=== PATIENT | male | born 1935 | race Caucasian/White ===

== ENCOUNTER 2016-07-25 07:27 | Day surgery (SDC) | payer OTHER ==
[~2016-07-25] VITALS: Ht 165.1 cm; Wt 82.5 kg
[~2016-07-25 07:27] MED LIST: ALPH400C2 PO; AMLO10TA2 PO; ASPI1TAB69 PO; ATEN100T PO; ATOR1TAB18 PO; B COTAB6 PO; CINN500C PO; CYAN1TAB24 PO; FERR1TAB58 PO; FLAX1CAP2 PO; GARL10CA2 PO; GEMF600T PO; GLIP10TA6 PO; HEPARIN SODIUM - IV 10,000 UNITS/10 ML VIAL ONE; HYDR25TA5 PO; LISI40TA PO; LORA10TA PO; LOSA100T PO; MAGN500T4 PO; MULT1TAB85 PO; PROTAMINE SULFATE 50 MG/5 ML VIAL ONE; TRAM50TA PO; VITA2000 PO; VITA20003 PO; VITA500T PO; [UNRECOGNIZED DRUG - CODE] PO
[2016-07-25 08:23] VITALS: BP 170/71; PULSE 73; RESP 20; TEMP 98.2; O2SAT 97
[2016-07-25] MEDS ORDERED: SODIUM CHLORID 0.9% 500 ML IV SCH (08:30)
[2016-07-25] MEDS ORDERED: INSULIN HUMAN REGULAR 1,000 UNITS/10 ML VIAL SQ PRN (08:30)
[2016-07-25] MEDS ORDERED: LACTATED RINGER'S 1000 ML IV SCH (08:30)
[2016-07-25] MEDS ORDERED: METOPROLOL TARTRATE 25 MG TAB PO PRN (08:30)
[2016-07-25] MEDS ORDERED: ceFAZolin 1,000 MG/NS 100 ML IV SCH ×2 (08:30)
[2016-07-25 08:38] LABS: AUTOMATED NEUTROPHIL # 4.5 TH/MM3 (1.8-7.7); BASOPHIL % 0.2 % (0.0-2.0); EOSINOPHIL # 0.2 TH/MM3 (0-0.4); EOSINOPHIL % 2.6 % (0.0-4.0); HEMATOCRIT 32.7 % (39.0-51.0); HEMO FLAGS DIFF FINAL; LYMPH % 15.5 % (9.0-44.0); MEAN CORPUSCULAR HEMOGLOBIN 31.6 PG (27.0-34.0); MEAN CORPUSCULAR HGB CONC 34.7 % (32.0-36.0); MONO % 11.9 % (0.0-8.0); NEUT % 69.8 % (16.0-70.0); PLATELET COUNT 125 TH/MM3 (150-450); RED CELL DISTRIBUTION WIDTH 14.9 % (11.6-17.2); WHITE BLOOD COUNT 6.4 TH/MM3 (4.0-11.0)
[2016-07-25 08:44] LABS: APTT (PATIENT) 24.5 SEC (24.3-30.1); INTERNATIONAL NORMALIZED RATIO 1.1 RATIO; PROTHROMBIN TIME - PATIENT 11.9 SEC (9.8-11.6)
[2016-07-25 08:53] LABS: BICARBONATE 24.7 MEQ/L (21.0-32.0); POTASSIUM 3.7 MEQ/L (3.5-5.1)
[2016-07-25] MEDS ORDERED: FAMOTIDINE 20 MG/2 ML VIAL ONE (09:51)
[2016-07-25] MEDS ORDERED: MIDAZOLAM HCL 2 MG/2 ML VIAL ONE (10:01)
[2016-07-25] MEDS ORDERED: DEXAMETHASONE SOD PHOS 4 MG/ML VIAL ONE (10:01)
[2016-07-25] MEDS: HEPARIN SODIUM - SQ 10,000 UNITS/ML VIAL ONE ×2 (10:44→10:56)
[2016-07-25] MEDS ORDERED: BUPIVACAINE/EPINEPHRINE 0.5% PF 30 ML VIAL INFIL ONE ×2 (10:44→10:56)
[2016-07-25] MEDS ORDERED: IOHEXOL 300 MG/ML 100 ML BTL (for Rad CT) OTHER ONE (11:12)
[2016-07-25] MEDS ORDERED: HEPARIN SODIUM - IV 10,000 UNITS/10 ML VIAL IV ONE (12:17)
[2016-07-25] MEDS ORDERED: PHENYLEPH/NS 1000 MCG/10 ML SYR IV ONE (13:44)
[2016-07-25] MEDS ORDERED: ePHEDrine/NS 50 MG/5 ML SYR IV ONE (13:44)
[2016-07-25] MEDS ORDERED: LACTATED RINGER'S 1000 ML INJ 1,000 ML IV ONE (13:44)
[2016-07-25] MEDS ORDERED: PROPOFOL 200 MG/20 ML AMP IV ONE (13:44)
[2016-07-25] MEDS ORDERED: NITROGLYCERIN 1000 MCG/5 ML VIAL OTHER ONE (13:48)
[2016-07-25] MEDS ORDERED: DO NOT ADM ANY ANTICOAGULANT DRUGS XX PRN (14:30)
[2016-07-25] MEDS ORDERED: SODIUM CHLOR 0.9% 250 ML IV PRN (14:45)
[2016-07-25] MEDS ORDERED: HOLD GLUCOPHAGE, GLUCOPHAGE XR, AND AVANDAMET XX PRN (14:45)
[2016-07-25] MEDS ORDERED: SODIUM NITROPRUSSIDE 50 MG/250 ML D5W IV SCH ×2 (14:45)
[2016-07-25] MEDS ORDERED: ONDANSETRON HCL 4 MG/2 ML VIAL IV PRN (14:45)
[2016-07-25] MEDS ORDERED: oxyCODONE/ACETAMINOPHEN 5 MG/325 MG TAB PO PRN (14:45)
[2016-07-25] MEDS ORDERED: POTASSIUM CHLORIDE 20 MEQ CONTROLLED RELEASE TAB PO PRN (14:45)
[2016-07-25] MEDS ORDERED: ATROPINE SULFATE 1 MG/ML VIAL IV PUSH PRN (14:45)
[2016-07-25] MEDS ORDERED: SODIUM CHLORIDE 5 ML FLUSH PRN IVF (14:45)
[2016-07-25] MEDS ORDERED: cloNIDine HCL 0.1 MG TAB PO PRN (14:45)
[2016-07-25] MEDS ORDERED: SODIUM CHLORIDE 0.9% 1000 ML @ 125 ML/HR IV SCH (14:45)
[2016-07-25] MEDS ORDERED: LABETALOL HCL 100 MG/20 ML VIAL IVP PRN (14:45)
[2016-07-25] MEDS ORDERED: ENALAPRILAT 1.25 MG/ML VIAL IV PRN (14:45)
[2016-07-25] MEDS ORDERED: MORPHINE SULFATE 4 MG/ML INJ IV PUSH PRN (14:45)
[2016-07-25] MEDS ORDERED: METOCLOPRAMIDE HCL 10 MG/2 ML VIAL IVS PRN (14:45)
[2016-07-25] MEDS ORDERED: CLOPIDOGREL 300 MG TAB PO ONE (16:30)
--- NOTE | 2016-07-25 16:57 | EKG ---
Date Performed: 07/25/2016 Time Performed: 08:28:16 PTAGE: 81 years EKG: Sinus rhythm WITH FIRST DEGREE AV BLOCK Baseline artifact Incomplete right bundle branch block. Nonspecific ST-T wave chenges. When compared to previou tracing, the patie now has an Incomplete right bundle brach bl ock. ABNORMAL ECG PREVIOUS TRACING : 07/17/2009 05.22 DOCTOR: Krystle Nichols Interpretating Date/Time 07/25/2016 16:54:37
[2016-07-25] MEDS ORDERED: traMADol HCL 50 MG TAB PO SCH (17:00)
[2016-07-25] MEDS ORDERED: PLAV75TA29 PO (18:14)
[2016-07-25 18:30] VITALS: BP 150/78; PULSE 80; RESP 16; TEMP 97.6; O2SAT 95
[2016-07-25] MEDS ORDERED: SODIUM CHLORIDE 5 ML FLUSH BID IVF SCH (21:00)
[2016-07-25] MEDS ORDERED: ATORVASTATIN 80 MG TAB PO SCH (21:00)
[2016-07-26] MEDS ORDERED: glipiZIDE 10 MG TAB PO SCH (07:00)
[2016-07-26] MEDS ORDERED: GEMFIBROZIL 600 MG TAB PO SCH (07:00)
[2016-07-26] MEDS ORDERED: LISINOPRIL 20 MG TAB PO SCH (09:00)
[2016-07-26] MEDS ORDERED: ASPIRIN EC 81 MG TABEC PO SCH (09:00)
[2016-07-26] MEDS ORDERED: LOSARTAN 50 MG TAB PO SCH (09:00)
[2016-07-26] MEDS ORDERED: ATENOLOL 100 MG TAB PO SCH (09:00)
[2016-07-26] MEDS ORDERED: HYDROCHLOROTHIAZIDE 25 MG TAB PO SCH (09:00)
[2016-07-26] MEDS ORDERED: CLOPIDOGREL 75 MG TAB PO SCH (09:00)
--- NOTE | 2016-07-30 14:46 | MP ---
cc: GEORGIA LOVETT M.D., JAMES T. M.D. DATE OF SURGERY: 07/25/2016 REOPERATIVE DIAGNOSIS Progressively disabling bilateral lower extremity ischemia, potentially limb threatening on the left side. POSTOPERATIVE DIAGNOSIS Progressively disabling bilateral lower extremity ischemia, potentially limb threatening on the left side. PROCEDURE 1. Left common iliac percutaneous balloon angioplasty and stent placement. 2. Right popliteal and tibioperoneal trunk orbital atherectomy and percutaneous balloon angioplasty. 3. CO2 aortofemoral arteriogram. SURGEON Hermann Millard FERN GATHERER DIONICIO Simmons ANESTHESIA Local MAC. DESCRIPTION OF OPERATIVE PROCEDURE With the patient in the supine position IV sedation was induced, the lower abdomen, both groins and thighs prepped with Betadine and draped in a sterile fashion. One gram of Ancef was administered intravenously and following a protocol timeout, the skin and subcutaneous tissue overlying and surrounding the proposed left common femoral access site preemptively infiltrated with 0.5% Marcaine with epinephrine. Utilizing ultrasound guidance, an 18-gauge needle was inserted into the left mid common femoral lumen and a J-wire advanced under fluoroscopic guidance into the left iliac artery. A 5-Mozambican hemostatic sheath was deployed over the J-wire. Retrograde injection of carbon dioxide to the sheath side-arm in conjunction with digital C-arm fluoroscopic imaging confirmed a near complete occlusion of the left common iliac origin. The previously placed left common iliac stent appeared widely patent. The left external iliac was diminished in caliber, probably due to decreased perfusion pressures relating to the common iliac high-grade stenosis. An Advantage guidewire, Omni catheter combination was navigated into the subrenal aorta. Again with CO2 as contrast, an aortobiiliac angiogram was accomplished. A small aneurysm was reconfirmed within the distal aorta. Again, near complete occlusion of the left common iliac origin was redefined. Beyond the near complete occlusion, post stenotic dilatation of the proximal segment of common iliac was apparent and the existing left common iliac stent was widely patent with diminished but patent caliber of the external iliac. On the right side the two separate iliac stents within the common iliac remained widely patent. Beyond this, the common and external iliac arteries were relatively non-diseased. Both internal iliac arteries were completely occluded. Finally, a runoff study revealed on the left side high-grade, diffuse calcified atherosclerotic plaque within the left common femoral bifurcation producing near-complete occlusion of the proximal SFA and profunda femoral arteries. Beyond the origin, the SFA was relatively non-diseased. However, at the adductor canal and beyond, the popliteal artery was severely calcified and occluded proximal to the knee joint level. Below the knee, the popliteal and trifurcation faintly visualized. On the right side, the SFA was normal in appearance down to the adductor level. The popliteal artery was diffusely diseased and occluded immediately proximal to the knee joint level. Geniculates collateralized the patent, below-knee popliteal. The tibioperoneal trunk exhibited eccentric calcified plaque producing diffuse 70-80% stenosis. Beyond, the anterior posterior tibial and peroneal arteries were normal in appearance. The patient was systemically heparinized with 5000 units. During the procedure, an additional 2000 units were administered intravenously to maintain ACT above 250. The 5-Mozambican sheath was exchanged over the Advantage guidewire for a 6-Mozambican Brite Tip sheath which was navigated into the mid left common iliac. Utilizing roadmapping guidance, the common iliac ostial stenosis was predilated with a 6 x 40 mm balloon followed by deployment of a 7 x 30 mm balloon expandable stent. Completion angiogram revealed wide patency with no residual stenosis or technical defects. The Advantage guidewire Omni catheter combination was re-advanced into the subrenal aorta, the guidewire navigated into the right iliac and distally into the proximal right superficial femoral artery. The Omni catheter was exchanged for a Quick-Cross catheter. This combination was navigated down to the popliteal occlusion. The Advantage guidewire could not be navigated through the densely calcified popliteal occlusion. A [place] 12 wire in conjunction with a 0.018 Quick-Cross catheter combination easily negotiated across the popliteal occlusion in the high-grade tibial peroneal stenosis. The [place] wire was then exchanged for a Viper wire which was negotiated into the distal peroneal. Orbital atherectomy of the popliteal and tibioperoneal disease was completed with a 1.5 CSI crown spun at 60, 90 and 120,000 RPMs. This was followed by balloon dilatation of the atherectomized segment of artery with a 4 x 140 mm balloon followed by a 5 x 150 mm drug-coated balloon inflated to nominal 8 atmospheres, 3 minute inflation. Completion angiogram revealed wide patency of the popliteal and tibioperoneal with no residual recoil stenosis or technical defects. At this point, heparin was reversed with 20 mg of protamine. ACT measured 153. The left femoral sheath was removed and hemostasis achieved with compression. The patient returned to the recovery room in stable condition having tolerated procedure well. At the completion of the procedure the right posterior tibial pulse was easily palpable and Doppler flow within the left dorsalis pedis was robust and much improved following left iliac inflow stenosis treatment. Hermann Millard MD JTS/BT /4:35 PM /2:33 PM
[2016-10-04] MEDS ORDERED: TAMS0.4C4 PO (09:55)
[2016-10-04] MEDS ORDERED: FISH1000 PO (09:55)
[2016-10-04] MEDS ORDERED: OMEP20TA PO (09:55)
== END 2016-07-25 19:10 | disposition home or self-care (01) ==
LOC: HCVO 07:27
PROVIDERS: ATTEND Surgery Vascular Surgery
DX: I70.213 Atherosclerosis of native arteries of extremities with intermittent claudication, bilateral legs (principal); I10 Essential (primary) hypertension; E11.9 Type 2 diabetes mellitus without complications; E78.5 Hyperlipidemia, unspecified; I25.10 Atherosclerotic heart disease of native coronary artery without angina pectoris; Z98.61 Coronary angioplasty status; Z79.01 Long term (current) use of anticoagulants
CPT/HCPCS: 01270; 37221; 37227; 37229; 75716; 76937; 80048; 85025; 85610; 85730; 86850; 86900; 86901; 93005; C1725; C1769; C1876; C1887; C2623; J0690; J1100; J1644; J2250; J2370; J2720; J7120; Q9967

== ENCOUNTER → 2016-10-05 | Day surgery (SDC) | payer OTHER ==
[~2016-10-05] MED LIST changes: +BUPIVACAINE/EPINEPHRINE 0.5% PF 30 ML VIAL ONE; +CHLORHEXIDINE GLUCONATE 2 % 1 PACK (2 CLOTHS) TOPICAL PRN; +DO NOT ADM ANY ANTICOAGULANT DRUGS PRN; +FAMOTIDINE 20 MG/2 ML VIAL ONE; +FISH1000 PO; +HEPARIN SODIUM - SQ 10,000 UNITS/ML VIAL ONE; +INSULIN HUMAN REGULAR 1,000 UNITS/10 ML VIAL SQ PRN; +IOHEXOL 300 MG/ML 50 ML BTL (for RAD DIAG) IV ONE; +IOHEXOL 300 MG/ML 50 ML BTL (for RAD DIAG) OTHER ONE; +LACTATED RINGER'S 1000 ML IV PRN; +METOPROLOL TARTRATE 25 MG TAB PO PRN; +OMEP20TA PO; +PLAV75TA29 PO; +POVIDONE IODINE 5% (ANTISEPSIS KIT) 4 APPLICATIONS EACH NARE PRN; +PROPOFOL 200 MG/20 ML AMP IV ONE; +SODIUM CHLORID 0.9% 500 ML INJ 500 ML IV ONE; +SODIUM CHLORID 0.9% 500 ML IV PRN; +TAMS0.4C4 PO; -VITA20003 PO; -[UNRECOGNIZED DRUG - CODE] PO; +ceFAZolin 1,000 MG/NS 100 ML IV SCH; +ePHEDrine/NS 25 MG/5 ML SYR IV ONE
[2016-10-05 06:10] VITALS: BP 181/80; PULSE 72; RESP 22; TEMP 98.1; O2SAT 98
[2016-10-05 06:56] LABS: AUTOMATED NEUTROPHIL # 3.1 TH/MM3 (1.8-7.7); BASOPHIL % 0.4 % (0.0-2.0); EOSINOPHIL # 0.1 TH/MM3 (0-0.4); EOSINOPHIL % 1.9 % (0.0-4.0); HEMATOCRIT 31.7 % (39.0-51.0); HEMO FLAGS DIFF FINAL; LYMPH % 22.5 % (9.0-44.0); LYMPHOCYTE # 1.1 TH/MM3 (1.0-4.8); MEAN CELL VOLUME 95.2 FL (80.0-100.0); MEAN CORPUSCULAR HEMOGLOBIN 31.7 PG (27.0-34.0); MEAN CORPUSCULAR HGB CONC 33.3 % (32.0-36.0); MONO % 11.9 % (0.0-8.0); NEUT % 63.3 % (16.0-70.0); PLATELET COUNT 104 TH/MM3 (150-450); RED BLOOD COUNT 3.33 MIL/MM3 (4.50-5.90); WHITE BLOOD COUNT 4.8 TH/MM3 (4.0-11.0)
[2016-10-05 07:04] LABS: APTT (PATIENT) 24.3 SEC (24.3-30.1); INTERNATIONAL NORMALIZED RATIO 1.1 RATIO
[2016-10-05 07:20] LABS: BICARBONATE 23.1 MEQ/L (21.0-32.0); POTASSIUM 3.5 MEQ/L (3.5-5.1)
[2016-10-05 14:53] VITALS: BP 154/73; PULSE 72; RESP 20; TEMP 97.9; O2SAT 95
--- NOTE | 2016-10-07 15:35 | MP ---
cc: CAROLYN MILLARD Corrected: 10/10/2016 DATE OF SURGERY: 10/05/2016 PREOPERATIVE DIAGNOSIS: Disabling left lower extremity ischemia. POSTOPERATIVE DIAGNOSIS Disabling left lower extremity ischemia. PROCEDURE Aortofemoral arteriogram with attempted crossing of the left popliteal arterial chronic total occlusion. SURGEON Carolyn Millard MD. CURRENCY EXCHANGE SPECIALIST: DIONICIO Simmons ANESTHESIA Local MAC DESCRIPTION With the patient in the supine position and under intravenous sedation the lower abdomen, both groins and thighs were prepped with Betadine and draped in a sterile fashion. One gram of Ancef was administered intravenously and following a protocol time-out, the skin and subcutaneous tissue surrounding the proposed right common femoral access site was preemptively infiltrated with 0.5% Marcaine with epinephrine. Utilizing ultrasound guidance, an 18 gauge needle was inserted into the right mid common femoral lumen and a J-wire advanced under fluoroscopic guidance into the iliac artery. A 5-Polish hemostatic sheath was deployed over the J-wire. An advantage guidewire Omni catheter combination was navigated under fluoroscopic guidance into the sub renal aorta. The aortofemoral arteriogram was then completed by injecting diluted contrast through the Omni catheter in conjunction with digital C-arm fluoroscopic imaging. This reconfirmed a small infrarenal abdominal aortic aneurysm. Multiple stents throughout both iliac arteries were re documented. All stents were widely patent. Flow was unrestricted down to the common femoral level bilaterally. On the left side the proximal SFA and profunda were severely diseased with eccentric calcified atherosclerotic plaque. Diffuse, segmental constriction of the proximal SFA extended approximately 40 mm distally and at its worse point, produced at least 60 to 70% stenosis. The SFA beyond the proximal stenosis was unrestricted, widely patent. However, severe calcific concentric plaque redeveloped at the abductor level and the above-knee popliteal was occluded, densely calcified. The below-knee popliteal and trifurcation were essentially normal. An advantage guidewire was navigated into the left common femoral lumen. The short 5-Polish sheath was exchanged for a 45 cm 6-Polish sheath which was guided into the left common femoral. The patient was systemically heparinized with 5000 units in an advantage guidewire quick cross catheter combination was easily navigated down to the popliteal occlusion. The advantage wire was exchanged for a 0.014 25 grams cook crossing wire supported with a 0.04 Quick cross catheter. The popliteal occlusion could be crossed down to the level of reentry but the distal cath could not be negotiated. Despite repeated attempts, I could not reenter the true lumen / distal popliteal. The 6-Polish sheath was exchanged over an advantage wire for a short 6-Polish sheath which was secured with skin suture of 2-0 silk. Sterile dressing applied. No operative complications. The patient returned to the recovery room in stable condition having tolerated procedure well. MD JOSE GUADALUPE Parra/francesca /5:32 PM /3:23 PM MTDMelvin
== END | disposition home or self-care (01) ==
LOC: HSDC 06:00
PROVIDERS: ATTEND Surgery Vascular Surgery
DX: M62.262 Nontraumatic ischemic infarction of muscle, left lower leg (principal); I74.3 Embolism and thrombosis of arteries of the lower extremities; I71.4 Abdominal aortic aneurysm, without rupture; I10 Essential (primary) hypertension; Z79.01 Long term (current) use of anticoagulants; E11.9 Type 2 diabetes mellitus without complications; Z79.84 Long term (current) use of oral hypoglycemic drugs
CPT/HCPCS: 01270; 37224; 75736; 80048; 85025; 85610; 85730; 86850; 86900; 86901; C1769; C1887; J0690; J1644; J2720; J7040; J7120; Q9967

== ENCOUNTER 2017-06-27 07:53 | Day surgery (SDC) | payer OTHER ==
[~2017-06-27 07:53] MED LIST changes: -ATOR1TAB18 PO; +ATOR80TA45 PO; -BUPIVACAINE/EPINEPHRINE 0.5% PF 30 ML VIAL ONE; -CHLORHEXIDINE GLUCONATE 2 % 1 PACK (2 CLOTHS) TOPICAL PRN; -DO NOT ADM ANY ANTICOAGULANT DRUGS PRN; -FAMOTIDINE 20 MG/2 ML VIAL ONE; -HEPARIN SODIUM - IV 10,000 UNITS/10 ML VIAL ONE; -HEPARIN SODIUM - SQ 10,000 UNITS/ML VIAL ONE; -INSULIN HUMAN REGULAR 1,000 UNITS/10 ML VIAL SQ PRN; -IOHEXOL 300 MG/ML 50 ML BTL (for RAD DIAG) IV ONE; -IOHEXOL 300 MG/ML 50 ML BTL (for RAD DIAG) OTHER ONE; -LACTATED RINGER'S 1000 ML IV PRN; -LISI40TA PO; -METOPROLOL TARTRATE 25 MG TAB PO PRN; -OMEP20TA PO; +OMEP20TA93 PO; -POVIDONE IODINE 5% (ANTISEPSIS KIT) 4 APPLICATIONS EACH NARE PRN; -PROPOFOL 200 MG/20 ML AMP IV ONE; -PROTAMINE SULFATE 50 MG/5 ML VIAL ONE; -SODIUM CHLORID 0.9% 500 ML INJ 500 ML IV ONE; -SODIUM CHLORID 0.9% 500 ML IV PRN; -ceFAZolin 1,000 MG/NS 100 ML IV SCH; -ePHEDrine/NS 25 MG/5 ML SYR IV ONE
[2017-06-27 08:25] VITALS: BP 130/74; PULSE 84; RESP 18; TEMP 97; O2SAT 96
[2017-06-27 09:55] VITALS: BP 128/74; PULSE 85; RESP 20; TEMP 97.5; O2SAT 93
[2017-06-27] MEDS ORDERED: traMADol HCL 50 MG TAB PO ONE (10:00)
[2017-06-27 10:05] VITALS: BP 127/71; PULSE 85; RESP 20
--- NOTE | 2017-06-27 10:06 | RADRPT ---
EXAM DATE/TIME: 06/27/2017 09:46 [facility] COMPARISON: No previous studies available for comparison. INDICATIONS : Post left side thoracentesis. MEDICAL HISTORY : Stage 3 kidney failure SURGICAL HISTORY : cardiac stents ENCOUNTER: Initial ACUITY: 1 day PAIN SCORE: 10/10 LOCATION: Bilateral chest FINDINGS: No significant pneumothorax. Residual small pleural effusion and airspace consolidation in the left l ower lung zone. There is volume loss on the left. Right lung is clear. Cardiomediastinal contours are within normal limits. Bony thorax is intact. CONCLUSION: 1. No significant pneumothorax status post left thoracentesis. 2. Very small residual pleural effusion with left lower lung zone airspace consolidation and volume l oss. Bib Robles MD on June 27, 2017 at 10:02 Board Certified Radiologist. This report was verified electronically.
[2017-06-27] MEDS ORDERED: LIDOCAINE HCL 1% 20 ML VIAL ONE (10:09)
--- NOTE | 2017-06-27 10:09 | RADRPT ---
EXAM DATE/TIME: 06/27/2017 08:22 [facility] COMPARISON: EXTERNAL COMPARISON: CHEST EXPIRATION ONLY, June 27, 2017, 9:46. [facility], XR CHEST - PA & LAT, Apr 19 2017 . INDICATIONS : Left pleural effusion. MEDICAL HISTORY : Hypertension. Arthritis. Coronary artery disease. Stage III renal failure. Diabetes. Pleural effusio n. Anticoagulant therapy, Eliquis. SURGICAL HISTORY : Tonsillectomy. Bilateral cataract surgery. Cardiac stents. Back surgery. Left elbow surgery. ENCOUNTER: Initial ACUITY: 2 months PAIN SCORE: 3/10 LOCATION: Left chest FLUID: Total volume of 2300 cc of glen fluid was removed. Fluid was discarded. Thoracentesis was therapeutic only. TECHNIQUE: 1. Ultrasound guidance for thoracentesis. 2. Thoracentesis. The risks, benefits, and alternatives to ultrasound guided thoracentesis were explained to the patien t in lay simple terms, including the risk of bleeding and infection. Written and verbal informed con sent was obtained. Appropriate area for thoracentesis was marked under ultrasound guidance with the patient in the uprig ht position. Overlying skin was prepped and draped in the usual sterile fashion and with local anest hetic, a dermatotomy was made with an 11 blade scalpel. A 6 Japanese thoracentesis catheter was placed in the pleural space and fluid was removed. Catheter was then removed and a sterile dressing applie d. There were no immediate complications. The patient tolerated the procedure well and the left the ultrasound suite in stable condition. Chest radiograph is to be obtained. CONCLUSION: Uncomplicated ultrasound guided thoracentesis. Gee Auguste MD on June 27, 2017 at 9:58 Board Certified Radiologist. This report was verified electronically.
== END 2017-06-27 10:30 | disposition home or self-care (01) ==
LOC: HRAD 07:53 → HRIP 07:54 → HRAD 10:30
PROVIDERS: ATTEND Internal Medicine Hematology & Oncology
DX: J90 Pleural effusion, not elsewhere classified (principal); C34.92 Malignant neoplasm of unspecified part of left bronchus or lung; I12.9 Hypertensive chronic kidney disease with stage 1 through stage 4 chronic kidney disease, or unspecified chronic kidney disease; N18.3 Chronic kidney disease, stage 3 (moderate); E11.22 Type 2 diabetes mellitus with diabetic chronic kidney disease; I25.10 Atherosclerotic heart disease of native coronary artery without angina pectoris; E05.90 Thyrotoxicosis, unspecified without thyrotoxic crisis or storm; Z79.01 Long term (current) use of anticoagulants
CPT/HCPCS: 32555; 71010; C1729

== ENCOUNTER 2017-07-04 08:26 | Day surgery (SDC) | payer OTHER ==
[~2017-07-04] VITALS: Ht 162.6 cm; Wt 70.9 kg
[2017-07-04 08:43] VITALS: BP 137/73; PULSE 92; RESP 20; TEMP 97.9; O2SAT 97
[2017-07-04] MEDS ORDERED: VANCOMYCIN 1000 MG/NS 250 ML - implanted port/tunneled catheter IV SCH ×2 (09:00)
[2017-07-04] MEDS ORDERED: ceFAZolin 2 GM PREMIX 50 ML - implanted port/tunneled catheter insertion IV SCH (09:00)
[2017-07-04] MEDS ORDERED: CHLORHEXIDINE GLUCONATE 2 % 1 PACK (2 CLOTHS) TOPICAL SCH (09:00)
[2017-07-04] MEDS ORDERED: POVIDONE IODINE 5% (ANTISEPSIS KIT) 4 APPLICATIONS EACH NARE SCH (09:00)
[2017-07-04] MEDS ORDERED: SODIUM CHLORIDE 0.9% 1000 ML IV SCH (09:00)
[2017-07-04] MEDS ORDERED: MIRT1TAB PO (09:27)
[2017-07-04] MEDS ORDERED: FURO40TA PO (09:27)
[2017-07-04] MEDS ORDERED: APIX2.5T PO (09:27)
[2017-07-04] MEDS ORDERED: PRED20 PO (09:27)
[2017-07-04] MEDS ORDERED: TRAM50TA PO (09:27)
[2017-07-04] MEDS ORDERED: DILT120T PO (09:27)
[2017-07-04] MEDS ORDERED: FERR325T18 PO (09:27)
[2017-07-04] MEDS ORDERED: METH5TAB4 PO (09:27)
[2017-07-04] MEDS ORDERED: MIDAZOLAM HCL 2 MG/2 ML VIAL ONE (10:07)
--- NOTE | 2017-07-04 11:25 | PD.RAD ---
Post Procedure Progress Note Pre Procedure Diagnosis: (1) Lung cancer Post Procedure Diagnosis: (1) Lung cancer Procedure Date: Jul 04, 2017 Supervising Radiologist: Xander Godinez Estimated blood loss: 5cc Anesthesia: Local Plan of Activity Patient to Unit: ROPU Patient Condition: Fair Additional Comments: Port placed via the right Ij without difficulty. Catheter in good position OK for use. Full dictated report to follow See PACS Report for procedural detail/treatment Xander Godinez MD Jul 04, 2017 11:25
[2017-07-04] MEDS ORDERED: SODIUM CHLORIDE 0.9% FLUSH 10 ML FLUSH IVF PRN (11:30)
[2017-07-04 11:38] VITALS: BP 134/84; PULSE 72; RESP 18; TEMP 97.4; O2SAT 95
[2017-07-04 11:53] VITALS: BP 139/96; PULSE 93; RESP 18; O2SAT 97
[2017-07-04 12:23] VITALS: BP 117/72; PULSE 70; RESP 17; O2SAT 97
[2017-07-04 12:53] VITALS: BP 109/64; PULSE 74; RESP 19; O2SAT 97
[2017-07-04 13:53] VITALS: BP 117/69; PULSE 78; RESP 18; O2SAT 98
--- NOTE | 2017-07-04 14:03 | RADRPT ---
EXAM DATE/TIME: 07/04/2017 09:57 [facility] COMPARISON: No previous studies available for comparison. INDICATIONS : Patient presents with lung cancer in need of port placement for chemotherapy treatment. MEDICAL HISTORY : Pleural effusion Anemia CAD CHF COPD Arthritis DM Hyperthyroid SURGICAL HISTORY : Thoracentesis Cataract sx Lung bx Back sx Thyroid bx Tonsillectomy Vasectomy Left elbow sx Cardiac stents ENCOUNTER: Initial ACUITY: >1 year PAIN SCORE: 2/10 LOCATION: Lower back pain. FLUORO TIME: 1.3 minutes IMAGE SERIES: 1 SEDATION TIME: 30 minutes ACCESS: Right internal jugular vein SEDATION: 1.) 2 mg midazolam (Versed) IV 2.) 100 mcg fentanyl (Sublimaze) IV Prophylactic antibiotics were administered with appropriate pre-procedure timing. Vancomycin within 2 hours of procedure, Ancef (or alternative) within 1 hour of procedure. DEVICE: 1. [address] [place] single lumen Smart port CT w/Vortex PROCEDURE : 1. Continuous pulse oximetry and EKG monitoring. 2. Intravenous conscious sedation. 3. Ultrasound guidance for venous access. 4. Fluoroscopic guided implantable central venous port placement. The patient was placed supine. The neck was prepped in sterile fashion. Full sterile technique was u sed, including cap, mask, sterile gloves and gown, and a large sterile sheet. Hand hygiene and 2% ch lorhexidine Betadine was utilized per protocol for cutaneous antisepsis with appropriate dry time for site. Sterile gel and sterile probe cover were utilized for ultrasound guidance. The skin and sub cutaneous tissues were infiltrated with local anesthetic solution. Under direct ultrasound guidance, central venous access was accomplished in the targeted vessel. The ultrasound images depicting access guidance were stored and saved to PACS for permanent record. A s ubcutaneous pocket was created using blunt dissection. The port was introduced to the pocket. The c atheter tubing was fed through a subcutaneous tunnel to the venotomy site. The catheter tubing was c ut to a suitable length and then was introduced through a valved Peel-Away sheath and positioned with catheter tubing tip at the cavo-atrial junction level. The pocket incision was closed with subcutic ular Vicryl suture. Steri-Strips were applied. The port was flushed and locked with heparin solutio n per protocol. Sterile dressing was applied to the site. The patient tolerated the procedure well. Conscious sedation was performed with the prescribed dosages and duration as above in the presence of an independent trained radiology nurse to assist in the monitoring of the patient. EKG and oximetry remained stable throughout the procedure. The patient tolerated the procedure well and there were no complications. The patient was sent to post anesthesia recovery in stable condition. CONCLUSION: Uncomplicated ultrasound and fluoroscopic guided implanted central venous port catheter placement as described in detail above. An 8 B[place]ud[place] Power port was placed. Xander Godinez MD on July 04, 2017 at 14:01 Board Certified Radiologist. This report was verified electronically.
== END 2017-07-04 14:00 | disposition home or self-care (01) ==
LOC: HROP 08:26 → HRIP 08:31 → HROP 14:00
PROVIDERS: ATTEND Internal Medicine Hematology & Oncology
DX: Z45.2 Encounter for adjustment and management of vascular access device (principal); C34.90 Malignant neoplasm of unspecified part of unspecified bronchus or lung; E05.90 Thyrotoxicosis, unspecified without thyrotoxic crisis or storm; E11.9 Type 2 diabetes mellitus without complications; I25.10 Atherosclerotic heart disease of native coronary artery without angina pectoris; I50.9 Heart failure, unspecified; J44.9 Chronic obstructive pulmonary disease, unspecified; Z95.5 Presence of coronary angioplasty implant and graft; Z79.01 Long term (current) use of anticoagulants
CPT/HCPCS: 36561; 76937; 77001; 99152; 99153; C1788; J0690; J1642; J2250; J3010; J3370; J7030; J7050

== ENCOUNTER 2017-10-08 09:42 | Day surgery (SDC) | payer OTHER ==
[~2017-10-08 09:42] MED LIST changes: -ALPH400C2 PO; -AMLO10TA2 PO; +APIX2.5T PO; -ASPI1TAB69 PO; -ATOR80TA45 PO; -B COTAB6 PO; -CINN500C PO; +DILT120T PO; -FERR1TAB58 PO; +FERR325T18 PO; -FISH1000 PO; -FLAX1CAP2 PO; +FURO40TA PO; -GARL10CA2 PO; -GEMF600T PO; -GLIP10TA6 PO; -HYDR25TA5 PO; -LORA10TA PO; -LOSA100T PO; -MAGN500T4 PO; +METH5TAB4 PO; +MIRT1TAB PO; -MULT1TAB85 PO; -PLAV75TA29 PO; +PRED20 PO; -VITA2000 PO; -VITA500T PO
[2017-10-08 10:40] VITALS: BP 136/76; PULSE 98; RESP 16; TEMP 97.8; O2SAT 96
[2017-10-08 11:45] VITALS: BP 131/75; PULSE 76; RESP 16; TEMP 98.1; O2SAT 95
[2017-10-08 12:00] VITALS: BP 142/86; PULSE 84; RESP 16; O2SAT 96
--- NOTE | 2017-10-08 12:04 | RADRPT ---
EXAM DATE/TIME: 10/08/2017 11:32 [facility] COMPARISON: CHEST EXPIRATION ONLY, June 27, 2017, 9:46. INDICATIONS : Post left side thoracentesis. MEDICAL HISTORY : Congestive heart failure. Chronic obstructive pulmonary disease. Hypertension. CAD, lung ca. SURGICAL HISTORY : Tonsillectomy. lung bx, thyroid bx, cardiac stents ENCOUNTER: Initial ACUITY: 2 days PAIN SCORE: 0/10 LOCATION: Bilateral chest FINDINGS: [id number] in good position of the right. Persistent consolidation in both spaces. No pneumothor ax upon thoracentesis. CONCLUSION: No pneumothorax on thoracentesis. Devaughn Godinez MD FACR on October 08, 2017 at 12:01 Board Certified Radiologist. This report was verified electronically.
[2017-10-08 12:15] VITALS: BP 139/85; PULSE 80; RESP 16; O2SAT 96
--- NOTE | 2017-10-08 13:13 | RADRPT ---
EXAM DATE/TIME: 10/08/2017 10:51 [facility] COMPARISON: US GUIDED THORACENTESIS LEFT, June 27, 2017, 8:22. INDICATIONS : Plueral effusion. MEDICAL HISTORY : Hypertension. Renal disease. Diabetes. SURGICAL HISTORY : Bilateral cataract. Cardiac stent. Lt elbow. ENCOUNTER: Subsequent ACUITY: 4 - 6 months PAIN SCORE: 2/10 LOCATION: Left chest FLUID: Total volume of 100 cc of cloudy, red fluid was removed. Fluid was discarded. Thoracentesis was therapeutic only. Post procedure scanning reveals no hematoma or other complication. TECHNIQUE: 1. Ultrasound guidance for thoracentesis. 2. Thoracentesis. The risks, benefits, and alternatives to ultrasound guided thoracentesis were explained to the patien t in lay simple terms, including the risk of bleeding and infection. Written and verbal informed con sent was obtained. Appropriate area for thoracentesis was marked under ultrasound guidance with the patient in the uprig ht position. Overlying skin was prepped and draped in the usual sterile fashion and with local anest hetic, a dermatotomy was made with an 11 blade scalpel. A 6 Bengali thoracentesis catheter was placed in the pleural space and fluid was removed. Catheter was then removed and a sterile dressing applie d. There were no immediate complications. The patient tolerated the procedure well and the left the ultrasound suite in stable condition. Chest radiograph is to be obtained. CONCLUSION: Uncomplicated ultrasound guided left thoracentesis. Fluid is very bloody Devaughn Godinez MD FACR on October 08, 2017 at 13:09 Board Certified Radiologist. This report was verified electronically.
[2017-10-08] MEDS ORDERED: LIDOCAINE HCL 1% PF 30 ML VIAL ONE (15:07)
== END 2017-10-08 12:40 | disposition home or self-care (01) ==
LOC: HRAD 09:42 → HRIP 09:51 → HRAD 12:40
PROVIDERS: ATTEND Internal Medicine Hematology & Oncology
DX: J90 Pleural effusion, not elsewhere classified (principal); I11.0 Hypertensive heart disease with heart failure; I50.9 Heart failure, unspecified; I25.10 Atherosclerotic heart disease of native coronary artery without angina pectoris; J44.9 Chronic obstructive pulmonary disease, unspecified; E11.9 Type 2 diabetes mellitus without complications; Z95.5 Presence of coronary angioplasty implant and graft; Z85.118 Personal history of other malignant neoplasm of bronchus and lung
CPT/HCPCS: 32555; 71045; C1729